=== PATIENT | male | born 1990 | race Caucasian/White ===

== ENCOUNTER 2017-10-21 22:04 | Emergency (ER) | payer BC, OTHER ==
--- NOTE | 2017-10-21 22:34 | EDM.PDOC ---
ED HPI GENERAL MEDICAL PROBLEM - General Chief Complaint: ENT Problem Stated Complaint: EAR INFECTION Time Seen by Provider: 10/21/17 22:24 - History of Present Illness INITIAL COMMENTS - FREE TEXT/NARRATIVE: 26-year-old male presents to the emergency room with right ear pain. This ear has been hurting most the day today this is preceded by significant sinus congestion or pressure for about the last for 5 days. He's had some chills no significant fevers he has some moderate sinus and nasal congestion. He has an intermittent rare cough. Past medical history is unremarkable medications: None Right Ear Pain Score (Numeric/FACES): 7 - Related Data Allergies Allergy/AdvReac Type Severity Reaction Status Date / Time Sulfa (Sulfonamide Allergy Cannot Verified 10/21/17 22:10 Antibiotics) Remember Home Meds: Home Meds Amoxicillin/Clavulanate K [Augmentin 875-125 MG] 1 tab PO Q12H #20 tablet [Rx] Past Medical History - Past Health History Medical/Surgical History: Denies Medical/Surgical History Social & Family History - Tobacco Use Smoking Status *Q: Never Smoker - Recreational Drug Use Recreational Drug Use: No ED ROS ENT - Review of Systems Review Of Systems: See Below Constitutional: Reports: Chills. Denies: Fever, Night Sweats HEENT: Reports: Ear Pain, Rhinitis, Sinus Problem Respiratory: Reports: Cough. Denies: Shortness of Breath, Sputum Cardiovascular: Reports: No Symptoms GI/Abdominal: Reports: No Symptoms : Reports: No Symptoms Neurological: Reports: No Symptoms ED EXAM, ENT - Physical Exam Exam: See Below Exam Limited By: No Limitations General Appearance: Alert, No Apparent Distress Eye Exam: Bilateral Eye: Normal Inspection Ears: Other (Right tympanic membrane is barely visualized possibly mildly erythematous he's pushed amount of cerumen up against it left tympanic membrane is mostly normal.) Nose: Other (Clear to off color nasal drainage sinuses are exquisitely tender more so on the left side than on the right side more so maxillary and frontal but frontal and maxillary sinuses are both abnormally tender. Oropharynx moist mucosa and no evidence of erythema or exudate he has some sinus type drainage down the posterior pharynx) Mouth/Throat: Normal Inspection, Normal Gums, Normal Lips, Normal Teeth Head: Atraumatic, Normocephalic Neck: Normal Inspection. No: Full Range of Motion, Lymphadenopathy (R) Respiratory/Chest: No Respiratory Distress, Normal Breath Sounds Cardiovascular: Normal Peripheral Pulses, Regular Rate, Rhythm, No Edema Course - Vital Signs Last Recorded V/S: Last Vital Signs Temp 36.6 C 10/21/17 22:10 Pulse 58 L 10/21/17 22:10 Resp 15 10/21/17 22:10 BP 129/87 10/21/17 22:10 Pulse Ox 97 10/21/17 22:10 Departure - Departure Time of Disposition: 22:40 Disposition: Home, Self-Care 01 Clinical Impression: Acute frontal sinusitis, Acute maxillary sinusitis - Discharge Information Prescriptions: Amoxicillin/Clavulanate K [Augmentin 875-125 MG] 1 tab PO Q12H #20 tablet Referrals: PCP,None [Primary Care Provider] - Additional Instructions: Return to the emergency room with any questions problems worsening symptoms. You been started on Augmentin this is an antibiotic take it twice daily for 10 days and be certain to take all the antibiotics. Use the Neilmed sinus irrigation solution 4 times a day area and use the model we looked up on the Internet. Follow-up at the Hospital clinic in 1 week if he need to. [phone]
== END 2017-10-21 22:50 | disposition home or self-care (01) ==
LOC: JD.ED 22:04
DX: J01.10 Acute frontal sinusitis, unspecified (principal); J01.00 Acute maxillary sinusitis, unspecified; Z88.2 Allergy status to sulfonamides
CPT/HCPCS: 99283

== ENCOUNTER 2020-06-19 20:53 | Emergency (ER) | payer SELFPAY ==
--- NOTE | 2020-06-19 21:22 | EDM.PDOC ---
ED HPI GENERAL MEDICAL PROBLEM - General Chief Complaint: Eye Problems Stated Complaint: FB IN RIGHT EYE Time Seen by Provider: 06/19/20 21:37 - History of Present Illness INITIAL COMMENTS - FREE TEXT/NARRATIVE: 29-year-old male presents the emergency room with some in his right eye. Patient was working on a manifold that had a broken stud part of his extractor broke and landed in his eye. This occurred around 3:00 this afternoon. It does interfere with his [id number]. Patient's last tetanus shot was about a year ago. Patient denies any other injury with this most unfortunate event. He has not noticed any significant vision loss with this Right Eye Pain Score (Numeric/FACES): 8 - Related Data Allergies Allergy/AdvReac Type Severity Reaction Status Date / Time Sulfa (Sulfonamide Allergy Cannot Verified 07/15/18 03:02 Antibiotics) Remember Home Meds: Home Meds . [No Known Home Meds] 07/15/18 [History] Past Medical History - Past Health History Medical/Surgical History: Denies Medical/Surgical History - Past Surgical History GI Surgical History: Reports: Appendectomy Social & Family History - Tobacco Use Tobacco Use Status *Q: Unknown Ever Used Tobacco ED ROS GENERAL - Review of Systems Review Of Systems: See Below Constitutional: Reports: No Symptoms HEENT: Reports: Eye Pain Respiratory: Reports: No Symptoms Cardiovascular: Reports: No Symptoms GI/Abdominal: Reports: No Symptoms ED EXAM GENERAL W FULL EYE - Physical Exam Exam: See Below Exam Limited By: No Limitations General Appearance: Alert, No Apparent Distress Eye Exam: Right Eye: Foreign Body Visual Acuity (R) 20/: 20 Visual Acuity (L) 20/: 20 With Correction: No Eyelids: Bilateral: Normal Appearance Conjunctiva & Sclera: Bilateral: Normal Appearance Cornea Exam: Right: Foreign Body (Right at the 4 o'clock position this could interfere with his vision in low light situations) Extraocular Movements: Bilateral: Intact Pupils: Normal Accommodation Pupillary Reaction: Bilateral: Brisk Anterior Chamber: Bilateral: Normal Appearance Posterior Chamber: Bilateral: Normal Funduscopic Head: Atraumatic, Normocephalic Respiratory/Chest: No Respiratory Distress, Lungs Clear, Normal Breath Sounds Cardiovascular: Normal Peripheral Pulses, Regular Rate, Rhythm, No Edema ED EYE w/ Add Procedure - Eye Procedure Eye FB Removal: Other (Moved with a eye spud for this rotary bur was used to remove the rust ring) Eye Irrigated w/ Saline (ccs): 2 Antibiotic Oinment/Drps Admin: Right Eye (With E-Mycin ointment) Progress: Patient tolerated the procedure well no complications Course - Vital Signs Last Recorded V/S: Last Vital Signs Temp 36.3 C 06/19/20 21:04 Pulse 77 06/19/20 21:04 Resp 16 06/19/20 21:04 BP 125/75 06/19/20 21:04 Pulse Ox 99 06/19/20 21:04 - Orders/Labs/Meds Meds: Medications Discontinued Medications Generic Name Dose Route Start Last Admin Trade Name Brannon PRN Reason Stop Dose Admin Fluorescein Sodium 1 mg 06/19/20 21:46 Ful-Cher EYERT 06/19/20 21:47 ONETIME ONE Fluorescein Sodium Confirm 06/19/20 21:47 Ful-Cher Administered 06/19/20 21:48 Dose 1 mg .ROUTE .STK-MED ONE Proparacaine HCl 1 ml 06/19/20 21:43 Proparacaine 0.5% Ophth Soln EYERT 06/19/20 21:44 ONETIME ONE Departure - Departure Time of Disposition: 22:21 Disposition: DC/Tfer to Medicaid [facility] 63 Clinical Impression: Foreign body in cornea, right eye, sequela - Discharge Information Referrals: PCP,None [Primary Care Provider] - Forms: ED Department Discharge Additional Instructions: Return to the emergency room with any questions problems or worsening symptoms. Using erythromycin ointment a little less than a half an inch behind your lower eyelid swelling around do this every couple hours while awake. This functions more as I agrees to allow the fragile cell layers to reaccumulate in the proper position. You have been given pain pills from the machine out in the waiting room #20 hydrocodone 5/325 take 1 or 2 every 4-6 hours as needed for pain allow 12 hours after using this medication before driving or returning to work. Try and follow-up with your eye doctor tomorrow for recheck. Sepsis Event Note (ED) - Evaluation Sepsis Screening Result: No Definite Risk - Focused Exam Vital Signs: Vital Signs Temp Pulse Resp BP Pulse Ox 06/19/20 21:04 36.3 C 77 16 125/75 99
[2020-06-19] MEDS ORDERED: Proparacaine 0.5% Ophth Soln 15 ML Bottle EYERT ONE (21:43)
[2020-06-19] MEDS ORDERED: Fluorescein 1 MG Ophth Strip EYERT ONE (21:46)
[2020-06-19] MEDS ORDERED: Fluorescein 1 MG Ophth Strip ONE (21:47)
[2020-06-19] MEDS ORDERED: Erythromycin Base 0.5% Ophth Oint 1 GM Tube EYERT ONE (22:14)
[2020-06-19] MEDS ORDERED: Acetaminophen/HYDROcodone 325-5 MG Tab PO ONE (22:14)
== END 2020-06-19 22:35 | disposition home or self-care (01) ==
LOC: JD.ED 20:53
DX: T15 Foreign body on external eye (principal); Z88.2 Allergy status to sulfonamides
CPT/HCPCS: 65220; 99283; A9270; 99282

== ENCOUNTER 2022-02-11 19:05 | Emergency (ER) | payer OTHER | END 2022-02-11 22:05 | disposition home or self-care (01) | LOC: JD.ED 19:05 | DX: S02.2XXA Fracture of nasal bones, initial encounter for closed fracture (principal); S01.81XA Laceration without foreign body of other part of head, initial encounter; T67.5XXA Heat exhaustion, unspecified, initial encounter; R55 Syncope and collapse; F17.210 Nicotine dependence, cigarettes, uncomplicated; Z88.2 Allergy status to sulfonamides; W22.09XA Striking against other stationary object, initial encounter; Y99.0 Civilian activity done for income or pay | CPT/HCPCS: 12001; 12011; 70450; 70450-26; 70486; 70486-26; 93005; 93010; 99283; 99284 ==